=== PATIENT | male | born 1940 | race Caucasian/White ===

== ENCOUNTER 2019-02-08 20:08 | Inpatient (IN) ==
[2019-02-08] MEDS ORDERED: SODIUM CHLORIDE 0.9% 1,000 ML IV STA (21:10)
[2019-02-08 21:21] LABS: Basophils % 0.2 % (0.0-0.8); Eosinophils % 0.2 % (0.00-10.9); Hematocrit 40.9 VOL% (42.0-52.0); Hemoglobin 14.2 GM/DL (14.0-18.0); Immature Granulocytes % 0.5 %; Immature Granulocytes Absolute 0.04 #; Lymphocytes # 0.9 10*3/uL (1.4-4.0); Lymphocytes % 10.7 % (21.2-54.2); Mean Corpuscular HGB Conc 34.7 GM/DL (32-36); Mean Corpuscular Volume 86.7 FL (87-102); Monocytes % 5.6 % (1.7-12.7); Neutrophils % 82.8 % (38.7-73.9); Platelet Count 210 T/CUMM (130-400); Red Blood Count 4.72 MC/CUMM (3.8-5.5); Red Cell Distribution Width 12.5 % (9.3-17.3); White Blood Count 8.2 T/CUMM (4-12)
[2019-02-08 21:35] LABS: Albumin 3.3 G/DL (3.4-5.0); Bilirubin,Total 0.7 MG/DL (0.2-1.0); Calcium 8.4 MG/DL (8.5-10.1); Osmolality,Calculated 260.2 MOS/KG (273-304); Total Protein 6.6 G/DL (6.4-8.3)
[2019-02-08 22:23] LABS: Sedimentation Rate-Westergren 47 MM/HR (0-20)
[2019-02-08 22:30] LABS: Apearance,Urine CLEAR (Clear); Bilirubin,Urine Negative (Negative); Blood, Urine Negative (Negative); Glucose,Urine (UA) 50 mg/dL (Negative); Hyaline Casts,Urine 1 /LPF (0-3); Ketones,Urine 5 mg/dL (Negative); Mucus,Urine Occasional /LPF (Occasional); Nitrite,Urine Negative (Negative); Protein,Urine 30 MG/DL; RBC,Urine 3 /HPF (0-4); Urine Color Yellow (Yellow); Urine Specific Gravity 1.015 (1.001-1.035); Urine Urobilinogen < 2.0 EU/DL (0.2-1.0); WBC,Urine 3 /HPF (0-6)
[2019-02-08] MEDS ORDERED: LABETALOL 20 MG/4 ML SYRINGE IV PRN (22:49)
[2019-02-08] MEDS ORDERED: ZALEPLON 5 MG CAPSULE PO PRN (22:49)
[2019-02-08] MEDS ORDERED: PROMETHAZINE 25 MG/1 ML VIAL IM PRN (22:49)
[2019-02-09] MEDS: SODIUM CHLORIDE 0.9% 1,000 ML IV SCH ×2 (00:16→18:00)
[2019-02-09] MEDS ORDERED: MECLIZINE 25 MG TABLET PO PRN (02:13)
[2019-02-09 05:04] LABS: Basophils % 0.3 % (0.0-0.8); Eosinophils % 0.3 % (0.00-10.9); Hematocrit 38.7 VOL% (42.0-52.0); Hemoglobin 13.3 GM/DL (14.0-18.0); Immature Granulocytes % 0.4 %; Immature Granulocytes Absolute 0.03 #; Lymphocytes # 1.2 10*3/uL (1.4-4.0); Lymphocytes % 15.6 % (21.2-54.2); Mean Corpuscular HGB Conc 34.4 GM/DL (32-36); Mean Corpuscular Volume 86.8 FL (87-102); Mean Platelet Volume 9.8 FL (9.6-12.0); Monocytes % 9.4 % (1.7-12.7); Platelet Count 201 T/CUMM (130-400); Red Blood Count 4.46 MC/CUMM (3.8-5.5); Red Cell Distribution Width 12.6 % (9.3-17.3); White Blood Count 7.6 T/CUMM (4-12)
[2019-02-09 05:28] LABS: Albumin 3.1 G/DL (3.4-5.0); Bilirubin,Total 1.2 MG/DL (0.2-1.0); Calcium 8.6 MG/DL (8.5-10.1); Osmolality,Calculated 262.8 MOS/KG (273-304); Risk Ratio 2.74; Total Protein 6.6 G/DL (6.4-8.3); VLDL CHOLESTEROL 15.2 MG/DL
[2019-02-09] MEDS ORDERED: NITROFURANTOIN MACRO/MONO 100 MG CAPSULE PO SCH (09:00)
[2019-02-09] MEDS: PANTOPRAZOLE 40 MG TABLET PO SCH (09:32)
[2019-02-09] MEDS ORDERED: DIAZEPAM 5 MG TABLET PO ONE (13:08)
[2019-02-09] MEDS: TAMSULOSIN 0.4 MG CAPSULE PO SCH (13:33)
[2019-02-09] MEDS: ASPIRIN EC 81 MG TABLET PO SCH (13:33)
[2019-02-09] MEDS: ENOXAPARIN 40 MG/0.4 ML SYRINGE SUBCUT SCH (13:33)
[2019-02-09] MEDS ORDERED: MELATONIN 3 MG TABLET PO PRN (23:12)
[2019-02-09] MEDS: traZODone 50 MG TABLET PO PRN (23:22)
[2019-02-10] MEDS: SODIUM CHLORIDE 0.9% 1,000 ML IV SCH ×2 (07:11→16:38)
[2019-02-10] MEDS ORDERED: fentaNYL 100 MCG/2 ML VIAL IV ONE (11:08)
[2019-02-10] MEDS ORDERED: MIDAZOLAM 2 MG/2 ML VIAL IV ONE (11:08)
[2019-02-10] MEDS: PANTOPRAZOLE 40 MG TABLET PO SCH (12:26)
[2019-02-10] MEDS: ASPIRIN EC 81 MG TABLET PO SCH (12:26)
[2019-02-10] MEDS ORDERED: MAGNESIUM CITRATE 300 ML BOTTLE PO PRN (13:52)
[2019-02-10] MEDS: MAGNESIUM HYDROXIDE SUSP 30 ML UDCUP PO PRN (14:47)
[2019-02-10] MEDS ORDERED: clonazePAM 0.5 MG TABLET PO SCH (21:00)
[2019-02-10] MEDS: ACETAMINOPHEN 325 MG TABLET PO PRN (22:05)
[2019-02-11] MEDS: traZODone 50 MG TABLET PO PRN (00:21)
[2019-02-11] MEDS: ASPIRIN EC 81 MG TABLET PO SCH (11:15)
[2019-02-11] MEDS: PANTOPRAZOLE 40 MG TABLET PO SCH (11:15)
[2019-02-11] MEDS: busPIRone 5 MG TABLET PO SCH ×2 (13:33→20:52)
[2019-02-11] MEDS ORDERED: hydrALAZINE 20 MG/1 ML VIAL IV PRN (16:16)
[2019-02-11] MEDS: ATENOLOL 25 MG TABLET PO SCH (16:30)
[2019-02-11] MEDS: SODIUM CHLORIDE 0.9% 1,000 ML IV SCH ×2 (17:17→18:44)
[2019-02-11] MEDS: ONDANSETRON 4 MG/2 ML VIAL IV PRN (17:18)
[2019-02-11] MEDS: MELATONIN 3 MG TABLET PO SCH ×2 (20:55→22:54)
[2019-02-12] MEDS: SODIUM CHLORIDE 0.9% 1,000 ML IV SCH ×2 (06:00→21:40)
[2019-02-12 06:13] LABS: Basophils % 0.4 % (0.0-0.8); Eosinophils # 0.1 10*3/uL (0.0-0.87); Eosinophils % 0.8 % (0.00-10.9); Hematocrit 39.9 VOL% (42.0-52.0); Hemoglobin 13.7 GM/DL (14.0-18.0); Immature Granulocytes % 0.6 %; Immature Granulocytes Absolute 0.05 #; Lymphocytes % 11.8 % (21.2-54.2); Mean Corpuscular HGB Conc 34.3 GM/DL (32-36); Mean Platelet Volume 10.5 FL (9.6-12.0); Monocytes % 11.2 % (1.7-12.7); Neutrophils % 75.2 % (38.7-73.9); Platelet Count 204 T/CUMM (130-400); Red Blood Count 4.64 MC/CUMM (3.8-5.5); Red Cell Distribution Width 12.9 % (9.3-17.3); White Blood Count 8.5 T/CUMM (4-12)
[2019-02-12 06:42] LABS: Calcium 8.5 MG/DL (8.5-10.1); Osmolality,Calculated 267.4 MOS/KG (273-304)
[2019-02-12] MEDS: PANTOPRAZOLE 40 MG TABLET PO SCH (09:20)
[2019-02-12] MEDS: ATENOLOL 25 MG TABLET PO SCH (09:20)
[2019-02-12] MEDS: TAMSULOSIN 0.4 MG CAPSULE PO SCH (09:20)
[2019-02-12] MEDS: ASPIRIN EC 81 MG TABLET PO SCH (09:20)
[2019-02-12] MEDS: busPIRone 5 MG TABLET PO SCH ×2 (09:20→21:32)
[2019-02-12] MEDS: MELATONIN 3 MG TABLET PO SCH (21:32)
[2019-02-13 09:01] LABS: Basophils % 0.3 % (0.0-0.8); Eosinophils # 0.1 10*3/uL (0.0-0.87); Eosinophils % 0.8 % (0.00-10.9); Hematocrit 37.6 VOL% (42.0-52.0); Hemoglobin 13.1 GM/DL (14.0-18.0); Immature Granulocytes % 0.5 %; Immature Granulocytes Absolute 0.04 #; Lymphocytes # 0.8 10*3/uL (1.4-4.0); Lymphocytes % 10.8 % (21.2-54.2); Mean Corpuscular HGB Conc 34.8 GM/DL (32-36); Mean Corpuscular Volume 85.1 FL (87-102); Mean Platelet Volume 9.7 FL (9.6-12.0); Monocytes % 10.3 % (1.7-12.7); Neutrophils % 77.3 % (38.7-73.9); Platelet Count 187 T/CUMM (130-400); Red Blood Count 4.42 MC/CUMM (3.8-5.5); Red Cell Distribution Width 12.7 % (9.3-17.3); White Blood Count 7.7 T/CUMM (4-12)
[2019-02-13 09:14] LABS: INR 1.1; PT Patient Result 11.6 SECS (9.6-12.2)
[2019-02-13] MEDS: TAMSULOSIN 0.4 MG CAPSULE PO SCH ×2 (09:21→21:51)
[2019-02-13] MEDS: busPIRone 5 MG TABLET PO SCH ×2 (09:21→21:51)
[2019-02-13] MEDS: PANTOPRAZOLE 40 MG TABLET PO SCH (09:21)
[2019-02-13] MEDS: ATENOLOL 25 MG TABLET PO SCH (09:21)
[2019-02-13] MEDS: SODIUM CHLORIDE 0.9% 1,000 ML IV SCH ×3 (09:21→21:52)
[2019-02-13] MEDS: ENOXAPARIN 40 MG/0.4 ML SYRINGE SUBCUT SCH (09:21)
[2019-02-13] MEDS: ASPIRIN EC 81 MG TABLET PO SCH (09:21)
[2019-02-13 09:43] LABS: Albumin 2.9 G/DL (3.4-5.0); Bilirubin,Total 0.7 MG/DL (0.2-1.0); Calcium 8.3 MG/DL (8.5-10.1); Osmolality,Calculated 261.9 MOS/KG (273-304); Total Protein 5.9 G/DL (6.4-8.3)
[2019-02-13] MEDS ORDERED: IMMUNE GLOBULIN 10% 20 GM, IMMUNE GLOBULIN 10% 5 GM in PREMIX 1 EACH IV ONE (12:24)
[2019-02-13] MEDS: ACETAMINOPHEN 325 MG TABLET PO PRN (14:49)
[2019-02-13] MEDS: MELATONIN 3 MG TABLET PO SCH (21:51)
[2019-02-14] MEDS: ACETAMINOPHEN 325 MG TABLET PO PRN ×2 (03:21→21:54)
[2019-02-14] MEDS: SODIUM CHLORIDE 0.9% 1,000 ML IV SCH (09:56)
[2019-02-14] MEDS: ASPIRIN EC 81 MG TABLET PO SCH (12:36)
[2019-02-14] MEDS: busPIRone 5 MG TABLET PO SCH ×2 (12:36→21:54)
[2019-02-14] MEDS: ATENOLOL 25 MG TABLET PO SCH (12:37)
[2019-02-14] MEDS: TAMSULOSIN 0.4 MG CAPSULE PO SCH ×2 (12:37→21:54)
[2019-02-14] MEDS: PANTOPRAZOLE 40 MG TABLET PO SCH (12:37)
[2019-02-14 13:04] LABS: Glucose,CSF 8 MG/DL (40-70)
[2019-02-14 13:05] LABS: Lymphocytes,CSF 52 %; Neutrophils,CSF 24 %; Red Blood Cell,CSF 53 C/CUMM; White Blood Cell,CSF 939 C/CUMM
[2019-02-14 13:06] LABS: Appearance,CSF Clear
[2019-02-14] MEDS: ONDANSETRON 4 MG/2 ML VIAL IV PRN (15:07)
[2019-02-14] MEDS: MELATONIN 3 MG TABLET PO SCH (21:54)
[2019-02-15] MEDS: SODIUM CHLORIDE 0.9% 1,000 ML IV SCH ×2 (08:40→15:49)
[2019-02-15] MEDS: ATENOLOL 25 MG TABLET PO SCH (08:41)
[2019-02-15] MEDS: busPIRone 5 MG TABLET PO SCH ×2 (08:41→21:20)
[2019-02-15] MEDS: ASPIRIN EC 81 MG TABLET PO SCH (08:41)
[2019-02-15] MEDS: TAMSULOSIN 0.4 MG CAPSULE PO SCH ×2 (08:41→21:20)
[2019-02-15] MEDS: PANTOPRAZOLE 40 MG TABLET PO SCH (08:41)
[2019-02-15] MEDS: MELATONIN 3 MG TABLET PO SCH (21:20)
[2019-02-16] MEDS: SODIUM CHLORIDE 0.9% 1,000 ML IV SCH ×3 (00:12→23:55)
[2019-02-16] MEDS: ACETAMINOPHEN 325 MG TABLET PO PRN (03:37)
[2019-02-16] MEDS ORDERED: DEXAMETHASONE INJ 20 MG in SODIUM CHLORIDE 0.9% 50 ML IV ONE (09:07)
[2019-02-16] MEDS: PANTOPRAZOLE 40 MG TABLET PO SCH (09:27)
[2019-02-16] MEDS: ASPIRIN EC 81 MG TABLET PO SCH (09:27)
[2019-02-16] MEDS: busPIRone 5 MG TABLET PO SCH ×2 (09:27→21:22)
[2019-02-16] MEDS: ATENOLOL 25 MG TABLET PO SCH (09:27)
[2019-02-16] MEDS: TAMSULOSIN 0.4 MG CAPSULE PO SCH ×2 (09:27→21:22)
[2019-02-16] MEDS: MAGNESIUM HYDROXIDE SUSP 30 ML UDCUP PO PRN (09:28)
[2019-02-16 12:36] LABS: VDRL Spinal Fluid Negative (Negative)
[2019-02-16] MEDS: MELATONIN 3 MG TABLET PO SCH (21:22)
[2019-02-17] MEDS: TAMSULOSIN 0.4 MG CAPSULE PO SCH ×2 (08:51→20:54)
[2019-02-17] MEDS: ATENOLOL 25 MG TABLET PO SCH (08:51)
[2019-02-17] MEDS: ASPIRIN EC 81 MG TABLET PO SCH (08:51)
[2019-02-17] MEDS: busPIRone 5 MG TABLET PO SCH ×2 (08:51→20:54)
[2019-02-17] MEDS: PANTOPRAZOLE 40 MG TABLET PO SCH (08:52)
[2019-02-17] MEDS ORDERED: DEXAMETHASONE 10 MG/1 ML VIAL IV SCH (10:00)
[2019-02-17] MEDS: DEXAMETHASONE INJ 20 MG in SODIUM CHLORIDE 0.9% 50 ML IV SCH (10:45)
[2019-02-17 12:21] LABS: West Nile Virus Ab, IgG, CSF Positive (Negative); West Nile Virus Ab, IgM, CSF Negative (Negative)
[2019-02-17] MEDS: ALBUTEROL 2.5 MG/3 ML NEB RESP TX SCH ×2 (12:52→23:50)
[2019-02-17 14:31] LABS: M. Tuberculosis PCR Result Negative (Negative); M. Tuberculosis PCR Source CSF
[2019-02-17] MEDS: SODIUM CHLORIDE 0.9% 1,000 ML IV SCH (15:22)
[2019-02-17] MEDS: MAGNESIUM HYDROXIDE SUSP 30 ML UDCUP PO PRN (17:30)
[2019-02-17] MEDS: MELATONIN 3 MG TABLET PO SCH (20:54)
[2019-02-17] MEDS ORDERED: ZALEPLON 5 MG CAPSULE PO PRN (23:28)
[2019-02-18 06:03] LABS: Calcium 8.3 MG/DL (8.5-10.1); Osmolality,Calculated 272.5 MOS/KG (273-304)
[2019-02-18] MEDS: ALBUTEROL 2.5 MG/3 ML NEB RESP TX SCH ×2 (07:45→14:35)
[2019-02-18] MEDS: ASPIRIN EC 81 MG TABLET PO SCH (11:01)
[2019-02-18] MEDS: ATENOLOL 25 MG TABLET PO SCH (11:01)
[2019-02-18] MEDS: TAMSULOSIN 0.4 MG CAPSULE PO SCH ×2 (11:01→21:22)
[2019-02-18] MEDS: busPIRone 5 MG TABLET PO SCH ×2 (11:01→21:22)
[2019-02-18] MEDS: PANTOPRAZOLE 40 MG TABLET PO SCH (11:01)
[2019-02-18] MEDS ORDERED: DEXTROSE 5% 1,000 ML IV SCH (13:00)
[2019-02-18] MEDS ORDERED: oxyCODONE/ACETAMINOPHEN 5-325 MG TABLET PO PRN (14:59)
[2019-02-18] MEDS: DEXAMETHASONE INJ 20 MG in SODIUM CHLORIDE 0.9% 50 ML IV SCH (15:05)
[2019-02-18] MEDS ORDERED: LORazepam 2 MG/1 ML VIAL IV PRN (17:54)
[2019-02-18] MEDS ORDERED: fentaNYL 25 MCG/HR PATCH TRANSDERM SCH (18:00)
[2019-02-18] MEDS: MELATONIN 3 MG TABLET PO SCH (21:23)
[2019-02-19 05:06] LABS: Basophils % 0.1 % (0.0-0.8); Hematocrit 37.9 VOL% (42.0-52.0); Hemoglobin 13.2 GM/DL (14.0-18.0); Immature Granulocytes % 0.7 %; Immature Granulocytes Absolute 0.06 #; Lymphocytes # 0.9 10*3/uL (1.4-4.0); Lymphocytes % 10.2 % (21.2-54.2); Mean Corpuscular HGB Conc 34.8 GM/DL (32-36); Mean Corpuscular Volume 86.3 FL (87-102); Mean Platelet Volume 9.8 FL (9.6-12.0); Monocytes % 7.2 % (1.7-12.7); Neutrophils % 81.8 % (38.7-73.9); Platelet Count 252 T/CUMM (130-400); Red Blood Count 4.39 MC/CUMM (3.8-5.5); Red Cell Distribution Width 13.2 % (9.3-17.3); White Blood Count 9.2 T/CUMM (4-12)
[2019-02-19 05:28] LABS: Albumin 2.8 G/DL (3.4-5.0); Bilirubin,Total 0.8 MG/DL (0.2-1.0); Calcium 8.3 MG/DL (8.5-10.1); Osmolality,Calculated 269.7 MOS/KG (273-304)
[2019-02-19] MEDS: ALBUTEROL 2.5 MG/3 ML NEB RESP TX SCH ×3 (07:20→23:58)
[2019-02-19] MEDS: SODIUM CHLORIDE 0.9% 1,000 ML IV SCH ×2 (07:51)
[2019-02-19] MEDS: busPIRone 5 MG TABLET PO SCH ×2 (09:22→21:07)
[2019-02-19] MEDS: TAMSULOSIN 0.4 MG CAPSULE PO SCH ×2 (09:22→21:07)
[2019-02-19] MEDS: PANTOPRAZOLE 40 MG TABLET PO SCH (09:22)
[2019-02-19] MEDS: ASPIRIN EC 81 MG TABLET PO SCH (09:22)
[2019-02-19] MEDS: ATENOLOL 25 MG TABLET PO SCH (09:22)
[2019-02-19] MEDS: SODIUM CHLORIDE 1 GM TABLET PO SCH ×2 (16:42→21:07)
[2019-02-19] MEDS: MELATONIN 3 MG TABLET PO SCH (21:07)
[2019-02-20] MEDS: ALBUTEROL 2.5 MG/3 ML NEB RESP TX SCH ×3 (07:52→23:24)
[2019-02-20] MEDS ORDERED: fentaNYL 12 MCG/HR PATCH TRANSDERM SCH (09:00)
[2019-02-20] MEDS ORDERED: LORazepam 0.5 MG TABLET PO PRN (09:26)
[2019-02-20] MEDS: ATENOLOL 25 MG TABLET PO SCH (09:31)
[2019-02-20] MEDS: PANTOPRAZOLE 40 MG TABLET PO SCH (09:31)
[2019-02-20] MEDS: busPIRone 5 MG TABLET PO SCH ×2 (09:32→21:37)
[2019-02-20] MEDS: ASPIRIN EC 81 MG TABLET PO SCH (09:32)
[2019-02-20] MEDS: SODIUM CHLORIDE 1 GM TABLET PO SCH ×3 (09:32→21:36)
[2019-02-20] MEDS: TAMSULOSIN 0.4 MG CAPSULE PO SCH ×2 (09:32→21:37)
[2019-02-20] MEDS: POLYETHYLENE GLYCOL POWDER 17 GM PACK PO SCH (14:45)
[2019-02-20] MEDS ORDERED: BISACODYL 10 MG SUPP RECTAL ONE (17:00)
[2019-02-20] MEDS: MELATONIN 3 MG TABLET PO SCH (21:37)
[2019-02-21] MEDS: ALBUTEROL 2.5 MG/3 ML NEB RESP TX SCH (07:18)
[2019-02-21 08:16] LABS: AChR Ganglionic Neuronal Ab, S 0 nmol/L (<=0.02); CRMP-5-IgG, S Negative titer (<1:240); Striational (Striated Muscle) Negative titer (<1:120)
[2019-02-21] MEDS: SODIUM CHLORIDE 1 GM TABLET PO SCH (09:03)
[2019-02-21] MEDS: busPIRone 5 MG TABLET PO SCH (09:03)
[2019-02-21] MEDS: ASPIRIN EC 81 MG TABLET PO SCH (09:03)
[2019-02-21] MEDS: ATENOLOL 25 MG TABLET PO SCH (09:03)
[2019-02-21] MEDS: TAMSULOSIN 0.4 MG CAPSULE PO SCH (09:03)
[2019-02-21] MEDS: PANTOPRAZOLE 40 MG TABLET PO SCH (09:03)
[2019-02-21] MEDS: POLYETHYLENE GLYCOL POWDER 17 GM PACK PO SCH (09:04)
[2019-02-21 09:26] VITALS: BP 115/69
[2019-02-22 12:50] LABS: West Nile Virus Ab, IgG, CSF Positive (Negative); West Nile Virus Ab, IgM, CSF Negative (Negative)
== END 2019-02-21 10:53 | disposition hospice, home (50) | DRG 840 ==
LOC: N.ED 20:08 → N.EDINP 20:08 → N.5E 23:16 → SUATTDRO 02-10 13:23
PROVIDERS: ADMIT Internal Medicine; ATTEND Internal Medicine